=== PATIENT | female | born 1950 | race Caucasian/White ===

== ENCOUNTER 2023-09-04 06:00 | Emergency (ER) | payer MEDICARE, SELFPAY ==
[2023-09-04] VITALS (52 sets, daily range): BP systolic 149–181; BP diastolic 78–110; PULSE 81–111; RESP 16–20; TEMP 36.5; O2SAT 92–100; BMI 36.0
--- NOTE | 2023-09-04 06:12 | CRLHL7_ITS ---
For Patients: As a result of the Century Cures Act, medical imaging exams and procedure reports are released immediately into your electronic medical record. You may view this report before your referring provider. If you have questions, please contact your health care provider. INDICATION: ataxia, possible stroke TECHNIQUE: Head CT without contrast. COMPARISON: None. FINDINGS: CSF spaces: Within normal limits for age. Brain parenchyma and extra-axial spaces: There are mild nonspecific low attenuation white matter changes consistent with chronic microvascular disease. No sign of mass effect, hemorrhage, or midline shift. No evidence of territorial infarct. Skull base and calvarium: The visualized paranasal sinuses and mastoid air cells demonstrate no acute or significant findings. The visualized orbits are grossly unremarkable. No skull fractures. IMPRESSION: 1. No evidence of acute intracranial abnormality on this unenhanced CT. 2. Mild nonspecific low attenuation white matter changes consistent with chronic microvascular disease. Please note that all CT scans at this facility use dose modulation, iterative reconstruction, and/or weight-based dosing when appropriate to reduce radiation dose to as low as reasonably achievable. Dictated by Jcarlos Salter MD @ 09/04/2023 7:10:43 AM (Electronically Signed)
[2023-09-04 06:35] LABS: Lactate* 1.3 mmol/L (0.5-1.9)
--- NOTE | 2023-09-04 06:37 | ED.GENADULT ---
HPI - General Adult General Chief complaint: Neck Injury/Pain <Chana Stone MD - Last Filed: 09/04/23 23:53> Stated complaint: Weak, difficulty walking <Chana Stone MD - Last Filed: 09/04/23 23:53> Time Seen by Provider: 09/04/23 06:14 <Chana Stone MD - Last Filed: 09/04/23 23:53> Source: patient <Chana Stone MD - Last Filed: 09/04/23 23:53> Mode of arrival: ambulatory <Chana Stone MD - Last Filed: 09/04/23 23:53> History of Present Illness HPI narrative: 73-year-old female reports that she has felt off balance since awakening this morning. Last known normal 10:30 p.m. last night. No head injury, no headache, no fever, no vision changes no difficulty with her extremities, confusion or word-finding problems. Reports that when she we got up to walk, she felt like she could not get her balance, swing to both sides. Denies of vertigo feeling or that the room is spinning or that she felt dizzy, just very off balance. Says she feels like her arms and legs are working normally, admits that she is having a hard time describing her symptoms. No prior history of stroke, no anticoagulants. Denies any alcohol or drug intake. No recent medication changes. Reports that her only home medication is blood pressure pill, statin and thyroid medicine. She also has inhalers for asthma. No prior history of similar symptoms or prior stroke. Denies chest pain, shortness of breath or cardiac issues. No pain in her legs or arms. Did not try any interventions prior to coming to ED today Past medical history hypertension, hyperlipidemia, asthma. Nonsmoker. ROS notable for the neurological changes as described above, otherwise denies times 12 systems. <Chana Stone MD - Last Filed: 09/04/23 23:53> Related Data Home medications: Home Medications Medication Instructions Recorded Confirmed albuterol sulfate 90 mcg/actuation inhalation 09/04/23 aerosol inhaler (Ventolin HFA) atorvastatin 10 mg tablet 10 mg PO DAILY 09/04/23 09/04/23 balsalazide 750 mg capsule PO 09/04/23 fluticasone furoate 100 1 inh inhalation DAILY 09/04/23 09/04/23 mcg/actuation blister powder for inhalation (Arnuity Ellipta) levothyroxine 50 mcg tablet 50 mcg PO DAILY 09/04/23 09/04/23 lisinopril 20 1 tab PO DAILY 09/04/23 09/04/23 mg-hydrochlorothiazide 12.5 mg tablet Previous Rx's Medication Instructions Recorded meclizine 12.5 mg tablet 12.5 mg PO TID PRN #20 tabs 09/04/23 <Chana Stone MD - Last Filed: 09/04/23 23:53> Allergies/adverse reactions: Allergies Allergy/AdvReac Type Severity Reaction Status Date / Time No Known Drug Allergies Allergy Verified 09/04/23 06:15 <Chana Stone MD - Last Filed: 09/04/23 23:53> PFSH PFSH Social History: Social History Non-prescribed substance use: denies use <Chana Stone MD - Last Filed: 09/04/23 23:53> Exam Const: Vital Signs, click to edit/add: Vital Signs - 24 hr 09/04/23 06:15 09/04/23 06:22 09/04/23 06:37 Temperature 97.7 F Pulse Rate 104 H 107 H Pulse Rate [Pulse Oximeter] 111 H Respiratory Rate 20 Blood Pressure Blood Pressure [Ri ght Upper Arm] 157/90 H Pulse Oximetry 97 96 92 Oxygen Delivery Me od Room Air 09/04/23 06:45 09/04/23 06:48 09/04/23 06:49 Temperature Pulse Rate 103 H 102 H 101 H Pulse Rate [Pulse Oximeter] Respiratory Rate Blood Pressure Blood Pressure [Ri ght Upper Arm] Pulse Oximetry 97 96 96 Oxygen Delivery Tn thod 09/04/23 07:00 09/04/23 07:01 09/04/23 07:15 Temperature Pulse Rate 100 97 93 Pulse Rate [Pulse Oximeter] Respiratory Rate Blood Pressure 158/94 H Blood Pressure [Ri ght Upper Arm] Pulse Oximetry 95 95 97 Oxygen Delivery Tn thod 09/04/23 07:16 09/04/23 07:30 09/04/23 07:31 Temperature Pulse Rate 93 108 H 102 H Pulse Rate [Pulse Oximeter] Respiratory Rate Blood Pressure 159/90 H 177/110 H Blood Pressure [Ri ght Upper Arm] Pulse Oximetry 96 95 98 Oxygen Delivery Me thod 09/04/23 07:45 09/04/23 07:47 09/04/23 08:00 Temperature Pulse Rate 92 95 90 Pulse Rate [Pulse Oximeter] Respiratory Rate Blood Pressure 181/105 H Blood Pressure [Ri ght Upper Arm] Pulse Oximetry 98 97 98 Oxygen Delivery Me thod 09/04/23 08:01 09/04/23 08:15 09/04/23 08:16 Temperature Pulse Rate 94 98 93 Pulse Rate [Pulse Oximeter] Respiratory Rate Blood Pressure 172/98 H 178/99 H Blood Pressure [Ri ght Upper Arm] Pulse Oximetry 99 96 98 Oxygen Delivery Me thod 09/04/23 08:16 09/04/23 08:30 09/04/23 08:31 Temperature Pulse Rate 93 90 98 Pulse Rate [Pulse Oximeter] Respiratory Rate Blood Pressure 178/99 H 180/99 H Blood Pressure [Ri ght Upper Arm] Pulse Oximetry 98 99 98 Oxygen Delivery Me thod 09/04/23 08:32 09/04/23 08:45 09/04/23 08:47 Temperature Pulse Rate 90 81 92 Pulse Rate [Pulse Oximeter] Respiratory Rate 16 Blood Pressure 176/97 H Blood Pressure [Ri ght Upper Arm] Pulse Oximetry 97 98 98 Oxygen Delivery Me thod Room Air 09/04/23 09:00 09/04/23 09:01 09/04/23 09:11 Temperature Pulse Rate 86 91 97 Pulse Rate [Pulse Oximeter] Respiratory Rate Blood Pressure 181/100 H 174/84 H Blood Pressure [Ri ght Upper Arm] Pulse Oximetry 98 99 98 Oxygen Delivery Me thod 09/04/23 09:15 09/04/23 09:16 09/04/23 09:30 Temperature Pulse Rate 95 95 93 Pulse Rate [Pulse Oximeter] Respiratory Rate Blood Pressure 151/85 H Blood Pressure [Ri ght Upper Arm] Pulse Oximetry 97 97 98 Oxygen Delivery Me thod 09/04/23 09:31 09/04/23 09:45 09/04/23 09:46 Temperature Pulse Rate 93 93 91 Pulse Rate [Pulse Oximeter] Respiratory Rate Blood Pressure 154/82 H 149/84 H Blood Pressure [Ri ght Upper Arm] Pulse Oximetry 97 99 99 Oxygen Delivery Me thod 09/04/23 10:00 09/04/23 10:01 09/04/23 10:15 Temperature Pulse Rate 94 97 92 Pulse Rate [Pulse Oximeter] Respiratory Rate Blood Pressure 153/82 H Blood Pressure [Ri ght Upper Arm] Pulse Oximetry 98 98 99 Oxygen Delivery Me thod 09/04/23 10:16 09/04/23 10:30 09/04/23 10:31 Temperature Pulse Rate 104 H 99 97 Pulse Rate [Pulse Oximeter] Respiratory Rate Blood Pressure 158/89 H 156/97 H Blood Pressure [Ri ght Upper Arm] Pulse Oximetry 98 96 94 Oxygen Delivery Me thod 09/04/23 10:45 09/04/23 10:46 09/04/23 11:01 Temperature Pulse Rate 95 98 92 Pulse Rate [Pulse Oximeter] Respiratory Rate Blood Pressure 153/84 H 151/83 H Blood Pressure [Ri ght Upper Arm] Pulse Oximetry 98 98 99 Oxygen Delivery Me thod 09/04/23 11:15 09/04/23 11:16 09/04/23 12:44 Temperature Pulse Rate 97 100 103 H Pulse Rate [Pulse Oximeter] Respiratory Rate Blood Pressure 149/84 H Blood Pressure [Ri ght Upper Arm] Pulse Oximetry 100 99 99 Oxygen Delivery Me thod 09/04/23 12:46 09/04/23 13:01 09/04/23 13:15 Temperature Pulse Rate 100 88 90 Pulse Rate [Pulse Oximeter] Respiratory Rate Blood Pressure Blood Pressure [Ri ght Upper Arm] Pulse Oximetry 97 99 98 Oxygen Delivery Me thod 09/04/23 13:30 09/04/23 13:45 09/04/23 14:00 Temperature Pulse Rate 92 90 91 Pulse Rate [Pulse Oximeter] Respiratory Rate Blood Pressure Blood Pressure [Ri ght Upper Arm] Pulse Oximetry 99 98 99 Oxygen Delivery Me thod 09/04/23 14:15 09/04/23 14:17 Temperature Pulse Rate 90 88 Pulse Rate [Pulse Oximeter] Respiratory Rate 16 Blood Pressure 158/78 H Blood Pressure [Ri ght Upper Arm] Pulse Oximetry 97 100 Oxygen Delivery Me od Room Air <Chana Stone MD - Last Filed: 09/04/23 23:53> Vital Signs, click to edit/add: Vital Signs - 24 hr 09/04/23 06:15 09/04/23 06:22 09/04/23 06:37 Temperature 97.7 F Pulse Rate 104 H 107 H Pulse Rate [Pulse Oximeter] 111 H Respiratory Rate 20 Blood Pressure Blood Pressure [Ri ght Upper Arm] 157/90 H Pulse Oximetry 97 96 92 Oxygen Delivery Me thod Room Air 09/04/23 06:45 09/04/23 06:48 09/04/23 06:49 Temperature Pulse Rate 103 H 102 H 101 H Pulse Rate [Pulse Oximeter] Respiratory Rate Blood Pressure Blood Pressure [Ri ght Upper Arm] Pulse Oximetry 97 96 96 Oxygen Delivery Me thod 09/04/23 07:00 09/04/23 07:01 09/04/23 07:15 Temperature Pulse Rate 100 97 93 Pulse Rate [Pulse Oximeter] Respiratory Rate Blood Pressure 158/94 H Blood Pressure [Ri ght Upper Arm] Pulse Oximetry 95 95 97 Oxygen Delivery Me thod 09/04/23 07:16 09/04/23 07:30 09/04/23 07:31 Temperature Pulse Rate 93 108 H 102 H Pulse Rate [Pulse Oximeter] Respiratory Rate Blood Pressure 159/90 H 177/110 H Blood Pressure [Ri ght Upper Arm] Pulse Oximetry 96 95 98 Oxygen Delivery Me thod 09/04/23 07:45 09/04/23 07:47 09/04/23 08:00 Temperature Pulse Rate 92 95 90 Pulse Rate [Pulse Oximeter] Respiratory Rate Blood Pressure 181/105 H Blood Pressure [Ri ght Upper Arm] Pulse Oximetry 98 97 98 Oxygen Delivery Me thod 09/04/23 08:01 09/04/23 08:15 09/04/23 08:16 Temperature Pulse Rate 94 98 93 Pulse Rate [Pulse Oximeter] Respiratory Rate Blood Pressure 172/98 H 178/99 H Blood Pressure [Ri ght Upper Arm] Pulse Oximetry 99 96 98 Oxygen Delivery Me thod 09/04/23 08:16 09/04/23 08:30 09/04/23 08:31 Temperature Pulse Rate 93 90 98 Pulse Rate [Pulse Oximeter] Respiratory Rate Blood Pressure 178/99 H 180/99 H Blood Pressure [Ri ght Upper Arm] Pulse Oximetry 98 99 98 Oxygen Delivery Me thod 09/04/23 08:32 09/04/23 08:45 09/04/23 08:47 Temperature Pulse Rate 90 81 92 Pulse Rate [Pulse Oximeter] Respiratory Rate 16 Blood Pressure 176/97 H Blood Pressure [Ri ght Upper Arm] Pulse Oximetry 97 98 98 Oxygen Delivery Me thod Room Air 09/04/23 09:00 09/04/23 09:01 09/04/23 09:11 Temperature Pulse Rate 86 91 97 Pulse Rate [Pulse Oximeter] Respiratory Rate Blood Pressure 181/100 H 174/84 H Blood Pressure [Ri ght Upper Arm] Pulse Oximetry 98 99 98 Oxygen Delivery Me thod 09/04/23 09:15 09/04/23 09:16 09/04/23 09:30 Temperature Pulse Rate 95 95 93 Pulse Rate [Pulse Oximeter] Respiratory Rate Blood Pressure 151/85 H Blood Pressure [Ri ght Upper Arm] Pulse Oximetry 97 97 98 Oxygen Delivery Me thod 09/04/23 09:31 09/04/23 09:45 09/04/23 09:46 Temperature Pulse Rate 93 93 91 Pulse Rate [Pulse Oximeter] Respiratory Rate Blood Pressure 154/82 H 149/84 H Blood Pressure [Ri ght Upper Arm] Pulse Oximetry 97 99 99 Oxygen Delivery Me thod 09/04/23 10:00 09/04/23 10:01 09/04/23 10:15 Temperature Pulse Rate 94 97 92 Pulse Rate [Pulse Oximeter] Respiratory Rate Blood Pressure 153/82 H Blood Pressure [Ri ght Upper Arm] Pulse Oximetry 98 98 99 Oxygen Delivery Me thod 09/04/23 10:16 09/04/23 10:30 09/04/23 10:31 Temperature Pulse Rate 104 H 99 97 Pulse Rate [Pulse Oximeter] Respiratory Rate Blood Pressure 158/89 H 156/97 H Blood Pressure [Ri ght Upper Arm] Pulse Oximetry 98 96 94 Oxygen Delivery Me thod 09/04/23 10:45 09/04/23 10:46 09/04/23 11:01 Temperature Pulse Rate 95 98 92 Pulse Rate [Pulse Oximeter] Respiratory Rate Blood Pressure 153/84 H 151/83 H Blood Pressure [Ri ght Upper Arm] Pulse Oximetry 98 98 99 Oxygen Delivery Me thod 09/04/23 11:15 09/04/23 11:16 09/04/23 12:44 Temperature Pulse Rate 97 100 103 H Pulse Rate [Pulse Oximeter] Respiratory Rate Blood Pressure 149/84 H Blood Pressure [Ri ght Upper Arm] Pulse Oximetry 100 99 99 Oxygen Delivery Me thod 09/04/23 12:46 09/04/23 13:01 09/04/23 13:15 Temperature Pulse Rate 100 88 90 Pulse Rate [Pulse Oximeter] Respiratory Rate Blood Pressure Blood Pressure [Ri ght Upper Arm] Pulse Oximetry 97 99 98 Oxygen Delivery Me thod 09/04/23 13:30 09/04/23 13:45 09/04/23 14:00 Temperature Pulse Rate 92 90 91 Pulse Rate [Pulse Oximeter] Respiratory Rate Blood Pressure Blood Pressure [Ri ght Upper Arm] Pulse Oximetry 99 98 99 Oxygen Delivery Me thod 09/04/23 14:15 09/04/23 14:17 Temperature Pulse Rate 90 88 Pulse Rate [Pulse Oximeter] Respiratory Rate 16 Blood Pressure 158/78 H Blood Pressure [Ri ght Upper Arm] Pulse Oximetry 97 100 Oxygen Delivery Me thod Room Air <Carmela Rollins MD - Last Filed: 09/04/23 14:29> Documenting provider has reviewed patient's vital signs: yes <Chana Stone MD - Last Filed: 09/04/23 23:53> Common normals: no apparent distress and alert <Chana Stone MD - Last Filed: 09/04/23 23:53> General appearance: cooperative, comfortable and well kempt <Chana Stone MD - Last Filed: 09/04/23 23:53> Orientation/consciousness: Yes awake <Chana Stone MD - Last Filed: 09/04/23 23:53> Other: Answers questions well, speaks appropriate sentences. No slurring. Consult good herself up on the bed, move both legs with no difficulty. Good truncal support. <Chana Stone MD - Last Filed: 09/04/23 23:53> HENMT: Common normals: normocephalic and head/scalp atraumatic <Chana Stone MD - Last Filed: 09/04/23 23:53> Head and scalp: normocephalic and atraumatic <Chana Stone MD - Last Filed: 09/04/23 23:53> Face and sinus: normal facial exam <MD Jerome Mesa Last Filed: 09/04/23 23:53> Mouth: oral and palatal mucosa normal <MD Jerome Mesa Last Filed: 09/04/23 23:53> Throat: posterior oropharynx normal <MD Jerome Mesa Last Filed: 09/04/23 23:53> Eye: Common normals: PERRL, EOMs intact bilaterally and conjunctivae normal <MD Jerome Mesa Last Filed: 09/04/23 23:53> General eye: normal appearance of both eyes <MD Jerome Mesa Last Filed: 09/04/23 23:53> Conjunctiva: conjunctiva(e) normal <MD Jerome Mesa Last Filed: 09/04/23 23:53> Pupil: PERRL <MD Jerome Mesa Last Filed: 09/04/23 23:53> Neck & C-Spine: Common normals: full ROM and no lymphadenopathy <MD Jerome Mesa Last Filed: 09/04/23 23:53> Resp: Common normals: normal respiratory effort, no use of accessory muscles and clear to auscultation bilaterally <MD Jerome Mesa Last Filed: 09/04/23 23:53> Effort & inspection: able to speak in complete sentences <MD Jerome Mesa Last Filed: 09/04/23 23:53> Auscultation: clear to auscultation bilaterally <MD Jerome Mesa Last Filed: 09/04/23 23:53> Cardio: Common normals: regular rate, regular rhythm, S1 normal heart sound, S2 normal heart sound and no murmurs <MD Jerome Mesa Last Filed: 09/04/23 23:53> Rate: regular rate <MD Jerome Mesa Last Filed: 09/04/23 23:53> Rhythm: regular rhythm <MD Jerome Mesa Last Filed: 09/04/23 23:53> Heart sounds: S1 normal and S2 normal <Chana Stone MD - Last Filed: 09/04/23 23:53> GI: Common normals: Normal to inspection, nondistended, normoactive bowel sounds present, soft to palpation, non-tender, no hepatosplenomegaly and no masses <Chana Stone MD - Last Filed: 09/04/23 23:53> Palpation: soft and no hepatosplenomegaly <Chana Stone MD - Last Filed: 09/04/23 23:53> Extremity: Common normals: normal to inspection, full ROM, normal capillary refill and no joint enlargement <Chana Stone MD - Last Filed: 09/04/23 23:53> Neuro: Common normals: CN's II-XII intact bilaterally, moves all extremities and no focal motor deficits <MD Jerome Mesa Last Filed: 09/04/23 23:53> Sensorium/orientation: awake and alert <Chana Stone MD - Last Filed: 09/04/23 23:53> Speech: speech normal <MD Jerome Mesa Last Filed: 09/04/23 23:53> Motor exam: strength 5/5 throughout, no tremor noted and no movement abnormalities noted; no pronator drift <MD Jerome Mesa Last Filed: 09/04/23 23:53> Psych: Appearance: well kempt <Chana Stone MD - Last Filed: 09/04/23 23:53> Attitude: engaged <Chana Stone MD - Last Filed: 09/04/23 23:53> Activity/motor behavior: appropriate eye contact <MD Jerome Mesa Last Filed: 09/04/23 23:53> Mood and affect: euthymic mood <MD Jerome Mesa Last Filed: 09/04/23 23:53> Insight: insight good <MD Jerome Mesa Last Filed: 09/04/23 23:53> Judgement: judgment good <Chana Sotne MD - Last Filed: 09/04/23 23:53> Skin: Common normals: no rashes or lesions noted <Chana Stone MD - Last Filed: 09/04/23 23:53> General skin exam: no rashes or lesions noted <Chana Stone MD - Last Filed: 09/04/23 23:53> Course Course ED Course: New onset ataxia concerning for possible atypical stroke presentation. Cannot exclude benign positional vertigo, vestibular neuritis or other similar etiology. Initial NIH stroke scale is negative. Recommended CT scan of the head, basic labs, EKG and senior manufacturing supervisor. Consider MRI if nonrevealing. If CT negative, consider trial dose of meclizine. <Chana Stone MD - Last Filed: 09/04/23 23:53> Reevaluation(s) Time of Reevaluation #1: 07:45 <Chana Stone MD - Last Filed: 09/04/23 23:53> Reevaluation #1: Re-evaluation: Patient did get some dizziness when she was down in imaging. We spent some time discussing with this felt like and she does not really describe it as a vertiginous type of feeling but could just be in are disconnect of L1 she verses I would describe that sensation. Repeat her neurological exam and I a only am able to elicit a small amount of left-sided horizontal nystagmus on Rebecca-Hallpike maneuvers 1 time but it was not reproducible. She continues to not notice any further neurological deficits. I reviewed the normal CT findings but have discussed the limitations of this with her. I still concerned based on presentation that this could be a vascular event. I do think it is in her best interest to have an MRI/MRA performed of the brain to look more closely. She does have some microvascular changes on CT, she has high blood pressure and her blood pressure is a typically elevated today which could be suggestive of a vascular process. I let her know that there would be a few hour wait for this but I do think that the benefit outweighs the downsides of that. Will give meclizine 25 mg p.o. x1 in case this is vertigo to see if she gets some symptomatic relief. Will hand over care to incoming day shift partner. <Chana Stone MD - Last Filed: 09/04/23 23:53> Vital Signs Vital signs: Initial Vital Signs Temperature 97.7 F 09/04/23 06:15 Temperature Source Temporal Artery Scan 09/04/23 06:15 Pulse Rate 111 H 09/04/23 06:15 Pulse Rhythm Regular 09/04/23 06:15 Pulse Strength 3+ Normal 09/04/23 06:15 Respiratory Rate 20 09/04/23 06:15 Blood Pressure 157/90 H 09/04/23 06:15 Blood Pressure Mean 112 H 09/04/23 06:15 Blood Pressure Position Sitting 09/04/23 06:15 Pulse Oximetry 97 09/04/23 06:15 Oxygen Delivery Method Room Air 09/04/23 06:15 Vital Signs Temperature 97.7 F 09/04/23 06:15 Pulse Rate 111 H 09/04/23 06:15 Respiratory Rate 20 09/04/23 06:15 Blood Pressure 157/90 H 09/04/23 06:15 Pulse Oximetry 97 09/04/23 06:15 Oxygen Delivery Method Room Air 09/04/23 06:15 Temperature 97.7 F 09/04/23 06:15 Pulse Rate 88 09/04/23 14:17 Respiratory Rate 16 09/04/23 14:17 Blood Pressure 158/78 H 09/04/23 14:17 Pulse Oximetry 100 09/04/23 14:17 Oxygen Delivery Method Room Air 09/04/23 14:17 <Chana Stone MD - Last Filed: 09/04/23 23:53> Initial Vital Signs Temperature 97.7 F 09/04/23 06:15 Temperature Source Temporal Artery Scan 09/04/23 06:15 Pulse Rate 111 H 09/04/23 06:15 Pulse Rhythm Regular 09/04/23 06:15 Pulse Strength 3+ Normal 09/04/23 06:15 Respiratory Rate 20 09/04/23 06:15 Blood Pressure 157/90 H 09/04/23 06:15 Blood Pressure Mean 112 H 09/04/23 06:15 Blood Pressure Position Sitting 09/04/23 06:15 Pulse Oximetry 97 09/04/23 06:15 Oxygen Delivery Method Room Air 09/04/23 06:15 Vital Signs Temperature 97.7 F 09/04/23 06:15 Pulse Rate 111 H 09/04/23 06:15 Respiratory Rate 20 09/04/23 06:15 Blood Pressure 157/90 H 09/04/23 06:15 Pulse Oximetry 97 09/04/23 06:15 Oxygen Delivery Method Room Air 09/04/23 06:15 Temperature 97.7 F 09/04/23 06:15 Pulse Rate 88 09/04/23 14:17 Respiratory Rate 16 09/04/23 14:17 Blood Pressure 158/78 H 09/04/23 14:17 Pulse Oximetry 100 09/04/23 14:17 Oxygen Delivery Method Room Air 09/04/23 14:17 <Carmela Rollins MD - Last Filed: 09/04/23 14:29> Medications Administered Medications: Discontinued Medications Generic Name Dose Route Start Last Admin Trade Name Freq PRN Reason Stop Dose Admin Aspirin 324 mg 09/04/23 08:25 09/04/23 08:30 Aspirin 81 Mg Tab.Chew PO 09/04/23 08:26 324 mg ONCE ONE Administration Meclizine HCl 25 mg 09/04/23 07:10 09/04/23 07:34 Meclizine Hcl 25 Mg Tablet PO 09/04/23 07:11 25 mg ONCE ONE Administration <Chana Stone MD - Last Filed: 09/04/23 23:53> Discontinued Medications Generic Name Dose Route Start Last Admin Trade Name Freq PRN Reason Stop Dose Admin Aspirin 324 mg 09/04/23 08:25 09/04/23 08:30 Aspirin 81 Mg Tab.Chew PO 09/04/23 08:26 324 mg ONCE ONE Administration Meclizine HCl 25 mg 09/04/23 07:10 09/04/23 07:34 Meclizine Hcl 25 Mg Tablet PO 09/04/23 07:11 25 mg ONCE ONE Administration <Carmela Rollins MD - Last Filed: 09/04/23 14:29> Medical Decision Making MDM Narrative Medical decision making narrative: I assumed care of this patient from Dr. Stone. Patient is currently awaiting MRI of head and neck with and without contrast for mild ataxia. 0920: Nursing staff is concerned regarding elevated blood pressure. At this time given circumstance will allow permissive hypertension. Patient will be allowed to take her usual home medications. Patient has remained stable during her stay in the emergency room. She underwent MRI of head neck with and without contrast and fortunately no evidence of underlying stroke. Therefore per Dr. Stone instructions patient will be discharged home with vertigo and meclizine as needed. Meclizine 12.5 mg, 1-2 tablets Q 8 hours p.r.n.. I would ask that patient follow-up with her primary physician next week for recheck. Of course for worsening symptoms have her return to the emergency room for further evaluation. <Carmela Rollins MD - Last Filed: 09/04/23 14:29> Medical Records Medical records reviewed: Yes I reviewed the patient's medical records <Carmela Rollins MD - Last Filed: 09/04/23 14:29> Lab Data Lab results reviewed: Yes I reviewed the patient's lab results <Chana Stone MD - Last Filed: 09/04/23 23:53> Lab results narrative: Labs reassuring. <Chana Sotne MD - Last Filed: 09/04/23 23:53> Labs: Lab Results 09/04/23 09/04/23 09/04/23 Range/Units 06:12 06:20 12:45 WBC 3.75 L (4.50-11.00) K/uL RBC 4.37 (4.00-5.20) m/uL Hgb 12.8 (12.0-16.0) gm/dL Hct 39.2 (33.0-51.0) % MCV 90 (80-100) fL MCH 29 (26-34) pg MCHC 33 (32-36) gm/dL RDW Coeff of Ryan 14.9 (11.5-15.5) % Plt Count 183 (140-440) K/uL Neut % (Auto) 17.3 L (42.0-72.0) % Lymph % (Auto) 44.3 H (20-44) % Aurora % (Auto) 37.6 H (0.0-11.0) % Eos % (Auto) 0.5 (0.0-7.0) % Baso % (Auto) 0.3 (0.0-3.0) % Neut # (Auto) 0.60 L (1.7-7.0) K/uL Lymph # (Auto) 1.70 (0.90-2.90) K/uL Aurora # (Auto) 1.40 H (0.00-0.90) K/UL Eos # (Auto) 0.00 (0.00-0.50) K/uL Baso # (Auto) 0.00 (0.00-0.30) K/uL Abs Immat Gran (auto) 0.00 (0.00-0.30) K/uL Imm/Tot Granulo (auto) 0.0 % Sodium 139 (135-149) mmol/L Potassium 3.9 (3.6-5.1) mmol/L Chloride 107 (96-114) mmol/L Carbon Dioxide 22 (20-32) mmol/L Anion Gap 10 (7-15) mEq/L BUN 26 (7-30) mg/dL Creatinine 0.7 (0.5-1.5) mg/dL Estimated Creat Clear 42.62 Estimated GFR 91 ml/min Glucose 132 H (60-115) mg/dL Lactate 1.3 (0.5-1.9) mmol/L Calcium 9.5 (8.4-10.6) mg/dL C-Reactive Protein 0.5 (0.5-1.0) mg/dL Urine Color Yellow (Yellow) Urine Appearance Clear (Clear) Urine pH 7.0 (5.0-8.5) Ur Specific Grand Chain 1.015 (1.000-1.030) Urine Protein Negative (Negative) Urine Glucose (UA) Negative (Negative) Urine Ketones Negative (Negative) Urine Blood Negative (Negative) Urine Nitrite Negative (Negative) Urine Bilirubin Negative (Negative) Urine Urobilinogen 0.2 (0.2-1.0) Ur Leukocyte Esterase Trace A (Negative) Urine RBC 0-2 (0-2) Urine WBC 0-2 (0-5) Ur Squamous Epith Cells Few (None-Few) Urine Bacteria Few A (None) Urine Opiates Screen Negative (Negative) Ur Oxycodone Screen Negative (Negative) Urine Methadone Screen Negative (Negative) Ur Barbiturates Screen Negative (Negative) U Tricyclic Antidepress Negative (Negative) Ur Phencyclidine Scrn Negative (Negative) Ur Amphetamines Screen Negative (Negative) U Methamphetamines Scrn Negative (Negative) U Benzodiazepines Scrn Negative (Negative) Urine Cocaine Screen Negative (Negative) U Marijuana (THC) Screen Negative (Negative) Ur Drug Screen Comment See Note Ethyl Alcohol < 0.01 L (0.01-0.03) % POC Troponin I 0.00 L (0.01-0.04) ng/ml <Chana Stone MD - Last Filed: 09/04/23 23:53> Lab Results 09/04/23 09/04/23 09/04/23 Range/Units 06:12 06:20 12:45 WBC 3.75 L (4.50-11.00) K/uL RBC 4.37 (4.00-5.20) m/uL Hgb 12.8 (12.0-16.0) gm/dL Hct 39.2 (33.0-51.0) % MCV 90 (80-100) fL MCH 29 (26-34) pg MCHC 33 (32-36) gm/dL RDW Coeff of Ryan 14.9 (11.5-15.5) % Plt Count 183 (140-440) K/uL Neut % (Auto) 17.3 L (42.0-72.0) % Lymph % (Auto) 44.3 H (20-44) % Aurora % (Auto) 37.6 H (0.0-11.0) % Eos % (Auto) 0.5 (0.0-7.0) % Baso % (Auto) 0.3 (0.0-3.0) % Neut # (Auto) 0.60 L (1.7-7.0) K/uL Lymph # (Auto) 1.70 (0.90-2.90) K/uL Aurora # (Auto) 1.40 H (0.00-0.90) K/UL Eos # (Auto) 0.00 (0.00-0.50) K/uL Baso # (Auto) 0.00 (0.00-0.30) K/uL Abs Immat Gran (auto) 0.00 (0.00-0.30) K/uL Imm/Tot Granulo (auto) 0.0 % Sodium 139 (135-149) mmol/L Potassium 3.9 (3.6-5.1) mmol/L Chloride 107 (96-114) mmol/L Carbon Dioxide 22 (20-32) mmol/L Anion Gap 10 (7-15) mEq/L BUN 26 (7-30) mg/dL Creatinine 0.7 (0.5-1.5) mg/dL Estimated Creat Clear 42.62 Estimated GFR 91 ml/min Glucose 132 H (60-115) mg/dL Lactate 1.3 (0.5-1.9) mmol/L Calcium 9.5 (8.4-10.6) mg/dL C-Reactive Protein 0.5 (0.5-1.0) mg/dL Urine Color Yellow (Yellow) Urine Appearance Clear (Clear) Urine pH 7.0 (5.0-8.5) Ur Specific Grand Chain 1.015 (1.000-1.030) Urine Protein Negative (Negative) Urine Glucose (UA) Negative (Negative) Urine Ketones Negative (Negative) Urine Blood Negative (Negative) Urine Nitrite Negative (Negative) Urine Bilirubin Negative (Negative) Urine Urobilinogen 0.2 (0.2-1.0) Ur Leukocyte Esterase Trace A (Negative) Urine RBC 0-2 (0-2) Urine WBC 0-2 (0-5) Ur Squamous Epith Cells Few (None-Few) Urine Bacteria Few A (None) Urine Opiates Screen Negative (Negative) Ur Oxycodone Screen Negative (Negative) Urine Methadone Screen Negative (Negative) Ur Barbiturates Screen Negative (Negative) U Tricyclic Antidepress Negative (Negative) Ur Phencyclidine Scrn Negative (Negative) Ur Amphetamines Screen Negative (Negative) U Methamphetamines Scrn Negative (Negative) U Benzodiazepines Scrn Negative (Negative) Urine Cocaine Screen Negative (Negative) U Marijuana (THC) Screen Negative (Negative) Ur Drug Screen Comment See Note Ethyl Alcohol < 0.01 L (0.01-0.03) % POC Troponin I 0.00 L (0.01-0.04) ng/ml <Carmela Rollins MD - Last Filed: 09/04/23 14:29> Imaging Data CT scan - head: Attestation: I have reviewed the pertinent imaging results. <Chana Stone MD - Last Filed: 09/04/23 23:53> My impression: Normal <Chana Stone MD - Last Filed: 09/04/23 23:53> Radiologist's impression: IMPRESSION: 1. No evidence of acute intracranial abnormality on this unenhanced CT. 2. Mild nonspecific low attenuation white matter changes consistent with chronic microvascular disease. Please note that all CT scans at this facility use dose modulation, iterative reconstruction, and/or weight-based dosing when appropriate to reduce radiation dose to as low as reasonably achievable. <Chana Stone MD - Last Filed: 09/04/23 23:53> MR Brain: Attestation: I have reviewed the pertinent imaging results. <Carmela Rollins MD - Last Filed: 09/04/23 14:29> Radiologist's impression: MRI brain: The ventricles and sulci within normal limits for patient age. No mass effect or midline shift. Scattered FLAIR hyperintensities in the supratentorial white matter, typical for mild chronic microvascular ischemic changes. No diffusion restriction to suggest acute infarction. No intracranial hemorrhage or pathologic extra-axial fluid collection. No pathologic intracranial enhancement. The major arterial flow voids of the skullbase are preserved. The globes are symmetric. The paranasal sinuses are well aerated. Minimal ethmoid sinus mucosal thickening. The mastoid air cells are clear. MRA head: The internal carotid, middle cerebral, and anterior cerebral arteries are widely patent. The vertebral, basilar, and posterior cerebral arteries are widely patent. No intracranial aneurysm or high-flow vascular malformation. MRA neck: The innominate and subclavian arteries are widely patent. The common carotid arteries are widely patent. The internal carotid arteries are widely patent. The left vertebral artery is dominant. The vertebral arteries are widely patent. IMPRESSION: 1. No acute intracranial abnormality. 2. Mild chronic microvascular ischemic changes. 3. Unremarkable MRA of the head and neck. <Carmela Rollins MD - Last Filed: 09/04/23 14:29> Discharge Plan Discharge Clinical Impression: Vertigo <Chana Stone MD - Last Filed: 09/04/23 23:53> Patient Disposition: Home, Self-Care <Chana Stone MD - Last Filed: 09/04/23 23:53> Condition: Improved <Chana Stone MD - Last Filed: 09/04/23 23:53> Additional Instructions: Meclizine as needed for dizziness or unsteadiness. Fortunately today there was no evidence of abnormality on your MRI. Please follow-up with your primary care provider if next week for recheck. Please return to the emergency room if you have worsening symptoms. <Chana Stone MD - Last Filed: 09/04/23 23:53> Prescriptions: New meclizine 12.5 mg tablet 12.5 mg PO TID PRNQty: 20 0RF Rx Instructions: You may take 1-2 tablets as needed every 8 hours. No Action atorvastatin 10 mg tablet 10 mg PO DAILY lisinopril-hydrochlorothiazide 20-12.5 mg tablet 1 tab PO DAILY levothyroxine 50 mcg tablet 50 mcg PO DAILY balsalazide 750 mg capsule PO albuterol sulfate [Ventolin HFA] 90 mcg/actuation HFA aerosol inhaler inhalation Arnuity Ellipta 100 mcg/actuation blister with device 1 inh inhalation DAILY <Chana Stone MD - Last Filed: 09/04/23 23:53> Follow Up/Referrals: Kateryna Guzman MD [Primary Care Provider] - <Chana Stone MD - Last Filed: 09/04/23 23:53> [facility] Al[facility]: [facility] Info Inst[facility] <Chana Stone MD - Last Filed: 09/04/23 23:53>
[2023-09-04 06:57] LABS: Basophils Percent Auto 0.3 % (0.0-3.0); Eosinophils Percent Auto 0.5 % (0.0-7.0); Hematocrit 39.2 % (33.0-51.0); Hemoglobin* 12.8 gm/dL (12.0-16.0); Lymphocytes Percent Auto 44.3 % (20-44); Mean Corpuscular HGB Conc 33 gm/dL (32-36); Mean Corpuscular Hemoglobin 29 pg (26-34); Mean Corpuscular Volume 90 fL (80-100); Monocytes Percent Auto 37.6 % (0.0-11.0); Neutrophils Percent Auto 17.3 % (42.0-72.0); Platelet Count* 183 K/uL (140-440); RDW Coefficient of Variation % 14.9 % (11.5-15.5); Red Blood Count 4.37 m/uL (4.00-5.20); White Blood Count* 3.75 K/uL (4.50-11.00)
[2023-09-04 07:11] LABS: Slide Review Reflex No
--- OUTSIDE RECORDS SUMMARY | 2023-09-04 07:11 | XMS_ITS | Clinical Summary ---
Author Name Unknown Organization [facility] Address [place], [place] [address] Care Team Providers Care Death Claim Clerk Name Role Phone Kateryna Guzman MD Primary Care Provide r Allergies No known active allergies Medications Medication Sig Dispensed Refills Start Date End Date Status calcium carbonate-cholecalcife rol, 600mg-200 units, (CALCIUM + D) 600 mg(1,500mg) -200 unit tablet Take by mouth. 0 04/08/2011 Active vitamin E 1,150 unit/1.25 mL liqd Take by mouth. 0 09/16/2017 Act kristen nqqxbkls-lvh-rgcqewo sulfate 4.5 mg iron tab Daily 0 Active albuterol (PROAIR RESPICLICK) 90 mcg/actuation INHALERIndications:Mil d intermittent asthma, unspecified whether complicated Inhale 2 Puffs by mouth every 4 hours if needed (shortness of breath or wheezing). 1 Each 03/22/2022 Active balsalazide (COLAZAL) 750 mg capsuleIndications:Ulc erative rectosigmoiditis without complication (HC) TAKE TWO CAPSULES BY MOUTH THREE TIMES A DAY WITH MEALS 540 Capsule 3 01/24/2023 Active albuterol HFA (PRO-AIR; VENTOLIN; PROVENTIL) 90 mcg/actuation inhalerIndications:Mil d intermittent reactive airway disease without complication Inhale 1-2 Puffs by mouth every 4 hours if needed for Shortness of Breath 2nd choice, Wheezing 1st choice or Shortness Of Breath. 1 Each 03/27/2023 Active atorvastatin (LIPITOR) 10 mg tabletIndications:Othe r hyperlipidemia Take 1 Tablet (10 mg) by mouth once daily. 90 Tablet 3 03/27/2023 Active hydrocortisone (ANUSOL-HC) 2.5 % rectal creamIndications:Hemor rhoids, external Apply topically to affected area(s) three times daily. 60 g 2 03/27/2023 Active lisinopril-hydrochloro thiazide 20-12.5 mg tablet (PRINZIDE)Indications: Essential hypertension Take 1 Tablet by mouth once daily. 90 Tablet 3 03/27/2023 Active fluticasone furoate (Arnuity Ellipta) 100 mcg/actuation inhalerIndications:Mil d intermittent asthma, unspecified whether complicated Inhale 1 Puff by mouth once daily. 30 Each 6 03/27/2023 Active levothyroxine (SYNTHROID) 50 mcg tabletIndications:Hypo thyroidism, unspecified type Take 1 Tablet (50 mcg) by mouth before breakfast. 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 Overview: Colonoscopy 02/2015 ulcerative colitis repeat in 7 years Unspecified asthma(493.90) 04/14/2007 Other and unspecified hyperlipidemia 04/14/2007 Unspecified essential hypertension 04/14/2007 Dysmetabolic syndrome X 04/14/2007 Unspecified hypothyroidism 04/14/2007 Severe obesity (BMI 35.0-39.9) with comorbidity 04/14/2007 Immunizations Name Administration Dates Next Due AMB INFLUENZA IIV3 (AGE 65+ YRS) PF (Flu Clinic Only) 05/29/2019 AMB Influenza, IIV3 (Age >=3 years)(Flu Clinic Only) 05/05/2013,05/21/2012,05/28/2011,2008 Amb Influenza, Inact (High-d ose) (Flu Clinic Only) 06/13/2015,05/24/2014 COVID-19 vaccine (Cookisto 30mcg/0.3mL) PF, MDV 05/23/2021,10/31/2020,10/10/2020 Influenza Virus, Unspecified 06/07/2010 Influenza, High-dose Inactivated 06/20/2016,10/2014,05/24/2014 Influenza, High-dose Quadriv alent Inactivated 04/25/2021 Influenza, IIV3 (Age 6-35 mos) 05/28/2011,2009 Influenza, IIV3 (Age >=3 years) 05/05/20 13,05/21/2012,05/15/2009,2006,07/16/2006,06/21/2005,06/18/2004 Influenza, IIV4 04/21/2020 Influenza, Inactivated AIIV4 (Age 65+ Years) Preserv Free 05/15/2023,05/01/2022 Influenza, Inactivated IIV3 (Age 65+ Years) Preserv Free 04/21/2018,05/07/2017 Pneumococcal Poly,23-Valent (Pneumovax) 05/24/2014 Pneumococcal conj 13-Valent (Prevnar 13) 01/12/2016 Td (Age >=7 Years) 07/18/2005 Td, Preservative Free (age > = 7 Years) 03/22/2022 Tdap 03/03/2012 Zoster (Shingrix-RZV, recombinant) 03/01/2021, Zoster (Zostavax-ZVL, live) 04/10/2009 Family History Medical History Relation Name Comments Diabetes Brother 1 Hypertension Brother 2 Heart Disease Father Arthritis Maternal Grandmother Diabetes Maternal Grandmother Other Maternal Grandmother osteopo rosis Arthritis Mother Diabetes Mother Hypertension Mother Other Mother osteoporosis Stroke Mother Heart Disease Paternal Grandfather Stroke Paternal Grandfather Allergies Sister 1 Asthma Sister 2 Anesthesia Problem No Family History Cancer-breast No Family History Relation Name Status Comments Brother 1 Brother 2 Father Maternal Grandmother Mother Paternal Grandfather Sister 1 Sister 2 Social History Tobacco Use Types Packs/Day Years Used Date Smoking Tobacco: Never Smokeless Tobacco: Never Tobacco Cessation:Counseling Given: Yes Alcohol Use Standard Drinks/Week Comments No 0 (1 standard drink = 0.6 oz pur e alcohol) PHQ-2 Answer Date Recorded PHQ-2 TOTAL SCORE 0 03/27/2023 Social Connections Answer Date Recorded Frequency of Communication with Friends and Fami ly Not on file 03/24/2023 Financial Resource Strain Answer Date R ecorded Difficulty of Paying Living Expenses 3 03/22/2022 Difficulty of Paying Living Expenses Not on file 03/22/2022 Food Insecurity Answer Date Recorded Worried About Running Out of Food in the Last Ye ar 1 03/22/2022 Transportation Needs Answer Date Record ed Lack of Transportation (Medical) 1 03/22/2022 Housing Stability Answer Date Recorded Unable to Pay for Housing in the Last Year 1 03/22/2022 Sex and Gender Information Value Date Recorded Sex Assigned at Not on file Gender Identity Not on file Sexual Orientation Not on file Obstetrics History Para Term AB IAB SAB Ectopic Multiple Livin g Live Births 2 2 2 2 Date Outcome GA Total Labor Labor/2nd/3rd Weight Sex Delivery Anes PTL Adilia A1 A5 Name Cl in Term Term Last Filed Vital Signs Vital Sign Reading Time Taken Comments Blood Pressure 131/78 03/27/2023 2:38 PM CDT Pulse 88 03/27/2023 2:38 PM CDT Temperature 36.9 ??C (98.5 ??F) 02/22/2020 10:42 AM C DT Respiratory Rate 16 08/10/2019 10:14 AM AIRCRAFT ENGINE SPECIALIST Oxygen Saturation 100% 03/27/2023 2:38 PM CDT Inhaled Oxygen Concentration - - Weight 94.5 kg (208 lb 6.4 oz) 03/27/2023 2:38 P M CDT Height 165.7 cm (5' 5.25) 03/27/2023 2:38 PM CD T Body Mass Index 34.41 03/27/2023 2:38 PM CDT Plan of Treatment Health Maintenance Due Date Last Done Comments Medicare Wellness for age 65+ 03/12/2019 03/12/2018, 02/13/2017 COVID-19 vaccine series ( season) 2023 05/13/2022, 01/23/2022, 05/23/2021, Additional history exists BMI (ht and wt on same day) for age 18+ 03/27/2024 03/27/2023, 03/15/2021, 02/22/2020, Additional history exists Depression screening for age 12+ 03/27/2024 03/27/2023, 03/15/2021, 03/23/2019, Additional history exists Mammogram for age 45-75 05/15/2024 05/15/20 23, 05/13/2022, 05/09/2021, Additional history exists Colonoscopy through age 75 03/09/2025 03/09/2015 Lipids for age 45-75 03/27/2028 03/27/2023, 03/22/2022, 03/15/2021, Additional history exists Tetanus booster 03/22/2032 03/22/2022, 02/09, 07/18/2005 Tdap Completed 03/03/2012 Pneumococcal series for age 65+ Completed 6, 05/24/2014 DEXA/DXA scan for age 65+ Completed 03/17/2017, 10/2008 Hepatitis C screening for ag e 18-79 Completed 02/22/2020 Zoster (shingles) series for age 50+ Completed 03/01/2021, 12/26/2020, 04/10/2009 Influenza for age 65+ Completed 05/15/2023 , 05/01/2022, 04/25/2021, Additional history exists Care Teams Death Claim Clerk Relationship Specialty Start Date End Date Kateryna Guzman MD [address] [place] [address] PCP - General Family Practice 11/05/11
[2023-09-04 07:25] LABS: Chloride* 107 mmol/L (96-114)
[2023-09-04 07:26] LABS: Potassium* 3.9 mmol/L (3.6-5.1); Sodium* 139 mmol/L (135-149)
[2023-09-04 07:28] LABS: Creatinine* 0.7 mg/dL (0.5-1.5); Est. Creatinine Clearance* 42.62; Estimated Glomerular Filt Rate 91 ml/min
[2023-09-04 07:29] LABS: Anion Gap 10 mEq/L (7-15); Blood Urea Nitrogen* 26 mg/dL (7-30); Calcium* 9.5 mg/dL (8.4-10.6); Carbon Dioxide* 22 mmol/L (20-32); Glucose* 132 mg/dL (60-115)
[2023-09-04 07:32] LABS: C Reactive Protein* 0.5 mg/dL (0.5-1.0)
[2023-09-04] MEDS: MECLIZINE HCL 25 MG TABLET PO (07:34)
--- NOTE | 2023-09-04 07:34 | CRLHL7_ITS ---
For Patients: As a result of the Century Cures Act, medical imaging exams and procedure reports are released immediately into your electronic medical record. You may view this report before your referring provider. If you have questions, please contact your health care provider. INDICATION: Ataxia. TECHNIQUE: MRI brain: Multiplanar multisequence MR imaging prior to and following intravenous contrast. MRA head: Cylo-[id number] imaging acquired. MRA neck: [id number]-rr-dfcdhz and postcontrast imaging acquired. COMPARISON CT brain 09/04/2023. FINDINGS: MRI brain: The ventricles and sulci within normal limits for patient age. No mass effect or midline shift. Scattered FLAIR hyperintensities in the supratentorial white matter, typical for mild chronic microvascular ischemic changes. No diffusion restriction to suggest acute infarction. No intracranial hemorrhage or pathologic extra-axial fluid collection. No pathologic intracranial enhancement. The major arterial flow voids of the skullbase are preserved. The globes are symmetric. The paranasal sinuses are well aerated. Minimal ethmoid sinus mucosal thickening. The mastoid air cells are clear. MRA head: The internal carotid, middle cerebral, and anterior cerebral arteries are widely patent. The vertebral, basilar, and posterior cerebral arteries are widely patent. No intracranial aneurysm or high-flow vascular malformation. MRA neck: The innominate and subclavian arteries are widely patent. The common carotid arteries are widely patent. The internal carotid arteries are widely patent. The left vertebral artery is dominant. The vertebral arteries are widely patent. IMPRESSION: 1. No acute intracranial abnormality. 2. Mild chronic microvascular ischemic changes. 3. Unremarkable MRA of the head and neck. Dictated by Mandeep Gruber MD @ 09/04/2023 2:15:36 PM (Electronically Signed)
[2023-09-04 07:35] LABS: Ethanol* < 0.01 % (0.01-0.03)
[2023-09-04] MEDS: ASPIRIN 81 MG TAB.CHEW 324 MG PO (08:30)
--- NOTE | 2023-09-04 09:00 | ED.NURSE ---
Dr. Rollins updated Pt BP's.
--- NOTE | 2023-09-04 12:45 | ED.NURSE ---
Pt did ambulate to BR independently well, pain to R neck improved now after sitting in recliner instead of in cot.
[2023-09-04 12:54] LABS: Appearance Urine Clear (Clear); Bilirubin Urine Negative (Negative); Blood Urine Negative (Negative); Color Urine Yellow (Yellow); Glucose Urine Negative (Negative); Ketones Urine Negative (Negative); Leukocyte Esterase Urine Trace (Negative); Nitrite Urine Negative (Negative); Protein Urine Negative (Negative); Specific Gravity Urine 1.015 (1.000-1.030); Urobilinogen Urine 0.2 (0.2-1.0)
[2023-09-04 13:06] LABS: Amphetamine Screen Urine Negative (Negative); Barbiturate Screen Urine Negative (Negative); Benzodiazepines Screen Urine Negative (Negative); Cannabinoid Screen Urine Negative (Negative); Cocaine Screen Urine Negative (Negative); Methadone Screen Urine Negative (Negative); Methamphetamines Screen Urine Negative (Negative); Opiate Screen Urine Negative (Negative); Oxycodone Screen Urine Negative (Negative); Phencyclidine Screen Urine Negative (Negative); Tricyclic Antidepressant Urine Negative (Negative)
[2023-09-04 13:14] LABS: RBC Urine 0-2 (0-2); Squamous Epithelial Cell Urine Few (None-Few); WBC Urine 0-2 (0-5)
[2023-09-04 13:15] LABS: Bacteria Urine Few
== END 2023-09-04 14:40 | disposition home or self-care (01) ==
PROVIDERS: Family Medicine; Emergency Provider Family Medicine; PCP Family Medicine
DX: R42 Dizziness and giddiness (principal)
CPT/HCPCS: 36415; 70450; 70544; 70549; 70553; 80048; 80306; 81003; 81015; 82077; 83605; 84484; 85025; 86140; 87086; 99284; 99285; A9270; A9575

== ENCOUNTER 2024-12-31 09:15 | Outpatient (CLI) | payer MEDICARE, SELFPAY ==
--- NOTE | 2024-12-31 10:54 | P.ANES_ITS ---
Anesthesia Charges Start Date/Time Anesthesia Start Date: 12/31/24 Anesthesia Start Time: 10:12 Stop Date/Time Anesthesia Stop Date: 12/31/24 Anesthesia Stop Time: 10:47 Summary Extremes of Age - Over 70 or under 1: TABLE ASSEMBLER METAL Coding CPT Codes CPT Codes: KARO LWR INTST NDSC NOS - 99191 ([id number]) P2 - PATIENT W/MILD SYST DISEASE, QK - VISION REHABILITATION THERAPIST 2-4 CNCRNT ANEMoses PROC, QX - TABLE ASSEMBLER METAL SVC W/ MD MED DIRECTION Additional Codes: Summary - Extremes of Age - Over 70 or under 1: TABLE ASSEMBLER METAL ([id number])
--- NOTE | 2024-12-31 10:54 | W.ANESCHARGE ---
Anesthesia Charges Start Date/Time Anesthesia Start Date: 12/31/24 Anesthesia Start Time: 10:12 Stop Date/Time Anesthesia Stop Date: 12/31/24 Anesthesia Stop Time: 10:47 Summary Extremes of Age - Over 70 or under 1: ENGINEERING MATHEMATICIAN Coding CPT Codes CPT Codes: KARO LWR INTST NDSC NOS - 55978 ([id number]) P2 - PATIENT W/MILD SYST DISEASE, QK - MAILROOM COURIER 2-4 CNCRNT ANEMoses PROC, QX - ENGINEERING MATHEMATICIAN SVC W/ MD MED DIRECTION Additional Codes: Summary - Extremes of Age - Over 70 or under 1: ENGINEERING MATHEMATICIAN ([id number])
--- NOTE | 2024-12-31 10:56 | P.ANES_ITS ---
Anesthesia Charges Start Date/Time Anesthesia Start Date: 12/31/24 Anesthesia Start Time: 10:12 Stop Date/Time Anesthesia Stop Date: 12/31/24 Anesthesia Stop Time: 10:47 Summary Extremes of Age - Over 70 or under 1: MDA Coding CPT Codes CPT Codes: ANES LWR INTST NDSC NOS - 59306 ([id number]) QK - SUPERVISOR QUILTING 2-4 CNCRNT ANES PROC, QX - MACHINE SET UP TECHNICIAN SVC W/ MD MED DIRECTION, P2 - PATIENT W/MILD SYST DISEASE Additional Codes: Summary - Extremes of Age - Over 70 or under 1: MDA ([id number])
== END 2024-12-31 09:16 | disposition home or self-care (01) ==
LOC: OP CLINIC 09:16
PROVIDERS: PCP Family Medicine; Visit Provider Internal Medicine Gastroenterology
DX: Z12.11 Encounter for screening for malignant neoplasm of colon (principal); Z87.19 Personal history of other diseases of the digestive system; K57.30 Diverticulosis of large intestine without perforation or abscess without bleeding
CPT/HCPCS: 00811; 45380; 88305; 99100; J2704